=== PATIENT | female | born 1955 | race Caucasian/White ===

== ENCOUNTER 2016-08-01 07:58 | Day surgery (SDC) | payer MEDICAID, OTHER ==
[~2016-08-01 07:58] MED LIST: Metoclopramide 10 MG/2 ML SDV IV PRN; Sodium Chloride 0.9% 1,000 ML IV SCH; Sodium Chloride 0.9% 10 ML Syringe FLUSH PRN
[2016-08-01] MEDS ORDERED: Propofol 200 MG/20 ML SDV ONE (11:25)
--- NOTE | 2016-08-01 12:10 | OR ---
DATE OF OPERATION: 08/01/2016 PREOPERATIVE DIAGNOSIS: History of polyps. POSTOPERATIVE DIAGNOSIS: One small sessile rectal polyp and sigmoid diverticulosis. OPERATION: Colonoscopy with cold forceps polypectomy. SURGEON: Jaja Ewing DO ANESTHESIA: General per Bryn Harris. ESTIMATED BLOOD LOSS: Less than 10 mL. DESCRIPTION OF PROCEDURE: After informed consent was obtained, the patient was taken to the endoscopy suite, and placed in a left lateral decubitus position with all pressure points, bony prominences, and neurovascular bundles padded appropriately with no undue tension. The Department of Anesthesia initiated cardiopulmonary monitoring and performed sedation. A digital rectal exam was performed which was within normal limits except for enlarged grade 1- 2 internal hemorrhoids. Then, a well lubricated Olympus colonoscope was inserted into the anus and advanced through the rectum, sigmoid colon, descending colon, splenic flexure, transverse colon, hepatic flexure, ascending colon, and cecum. The prep was excellent allowing for complete visualization of all mucosal surfaces. There were moderate amount of diverticula in the sigmoid colon, none of which were impacted, inflamed, or bleeding. The colonoscope was slowly withdrawn from the cecum and all surface mucosal anatomy was again reviewed without any further abnormalities being identified into the rectum where a small sessile polyp was noted, photographed and completely removed with the cold forceps device. This was sent to Pathology for further histologic evaluation. The scope was removed the rest of the way after as much air as possible was evacuated. The patient tolerated the procedure well and was taken to the post anesthesia care unit in stable condition. HC/FAUSTINOL /[id number]
[2016-08-01 13:31] VITALS: BP 147/69
== END 2016-08-01 13:30 | disposition home or self-care (01) ==
LOC: LB.SDS 07:58
PROVIDERS: ATTEND Surgery
DX: Z12.11 Encounter for screening for malignant neoplasm of colon (principal); K62.1 Rectal polyp; K57.30 Diverticulosis of large intestine without perforation or abscess without bleeding; K64.8 Other hemorrhoids; I10 Essential (primary) hypertension; E78.5 Hyperlipidemia, unspecified; Z88.8 Allergy status to other drugs, medicaments and biological substances; Z79.82 Long term (current) use of aspirin; Z79.899 Other long term (current) drug therapy
CPT/HCPCS: 45380; 88305; J2704

== ENCOUNTER → 2019-04-29 | Outpatient (CLI) | payer MEDICARE ==
--- NOTE | 2019-04-29 11:42 | CR ---
Date of Service: 04/29/19 Clinical Data: Dorsalgia, unspecified LUMBAR SPINE: There is diffuse osteopenia. The vertebral bodies are of average height and in good alignment. No acute fracture or dislocation. No focal lytic or blastic bone lesions. There is mild degenerative disk disease throughout the lower thoracic and lumbar spine with mild disk space narrowing at multiple levels. There is facet joint hypertrophy in the mid to lower lumbar spine. No other significant findings. [id number] [facility]
== END ==
LOC: LB.MAM 09:00
PROVIDERS: ATTEND Nurse Practitioner Family
DX: M85.88 Other specified disorders of bone density and structure, other site (principal); E78.5 Hyperlipidemia, unspecified; M54.9 Dorsalgia, unspecified
CPT/HCPCS: 36415; 72100; 77080; 80053; 80061

== ENCOUNTER 2022-07-26 10:12 | Day surgery (SDC) | payer MEDICARE ==
[2022-07-26] MEDS: Sodium Chloride 0.9% 1,000 ML IV SCH (10:42)
[2022-07-26] MEDS ORDERED: Propofol 200 MG/20 ML SDV ONE (13:00)
[2022-07-26 13:29] VITALS: BP 128/74; PULSE 73
[2022-07-26] MEDS: Metoclopramide 10 MG/2 ML SDV IV PRN (13:33)
== END 2022-07-26 14:15 | disposition home or self-care (01) ==
LOC: LB.SDS 10:12
PROVIDERS: ATTEND Surgery
DX: K57.30 Diverticulosis of large intestine without perforation or abscess without bleeding (principal); I10 Essential (primary) hypertension; E78.5 Hyperlipidemia, unspecified; M85.88 Other specified disorders of bone density and structure, other site; M19.90 Unspecified osteoarthritis, unspecified site; I44.7 Left bundle-branch block, unspecified; Z88.5 Allergy status to narcotic agent; Z79.899 Other long term (current) drug therapy; Z90.49 Acquired absence of other specified parts of digestive tract; Z87.891 Personal history of nicotine dependence
CPT/HCPCS: 45378; J2704; J2765; J7030

== ENCOUNTER 2024-11-23 15:56 | Emergency (ER) | payer MEDICARE ==
[2024-11-23] MEDS ORDERED: Sodium Chloride 0.9% 10 ML Syringe FLUSH PRN (16:08)
[2024-11-23 16:33] LABS: MEAN PLATELET VOLUME 8.7 fL (6.0-10.0); PLATELET COUNT,PLT 293.0 K/uL (150-500); RED BLOOD CELL COUNT 5.24 M/uL (3.80-5.80); RED CELL DISTRIBUTION WIDTH 17.3 % (11.0-16.0); WHITE BLOOD CELL COUNT,WBC 9.5 K/uL (4.0-11.0)
[2024-11-23] MEDS: Prochlorperazine 10 MG/2 ML SDV IVPUSH ONE (16:39)
[2024-11-23] MEDS: Labetalol 100 MG/20 ML MDV IVPUSH ONE (16:39)
[2024-11-23] MEDS: diazePAM 5 MG/ML MDV IVPUSH ONE (16:39)
[2024-11-23] MEDS: diphenhydrAMINE 50 MG/ML SDV IVPUSH ONE (16:39)
[2024-11-23 16:50] LABS: BLOOD UREA NITROGEN,BUN 20.0 mg/dL (8-26); CARBON DIOXIDE,CO2 32.8 mmol/L (21.0-32.0); CHLORIDE,CL 106.0 mmol/L (98-107); CREATININE 0.86 mg/dL (0.55-1.02); EST CRCL DRUG DOSING (CG) 53.99 mL/min; ESTIMATED GFR 72.0 mL/min (>60); GLUCOSE RANDOM 133.0 mg/dL (74-100); POTASSIUM,K 4.2 mmol/L (3.5-5.1); SODIUM,NA 143.0 mmol/L (136-145); TROPONIN I HIGH SENSITIVITY 8.1 pg/ml (<=60.4)
[2024-11-23 21:12] VITALS: BP 169/82; PULSE 56
== END 2024-11-23 19:25 | disposition home or self-care (01) ==
LOC: LB.ED 15:56
DX: I10 Essential (primary) hypertension (principal); Z88.8 Allergy status to other drugs, medicaments and biological substances; Z79.82 Long term (current) use of aspirin; Z90.49 Acquired absence of other specified parts of digestive tract
CPT/HCPCS: 36415; 70450; 80048; 83735; 84484; 85027; 85379; 93005; 96374; 96375; 99284; A9270; J0780; J1200; J1920; J3360; J7030; 93010